=== PATIENT | male | born 1950 | race Caucasian/White ===

== ENCOUNTER 2022-04-26 08:11 | Inpatient (IN) ==
--- NOTE | 2022-04-26 08:36 | Emergency Department Note ---
HPI General Chief complaint: Shortness of Breath/Dyspnea Stated complaint: SOB Time Seen by Provider: 04/26/22 08:16 Source: patient Mode of arrival: wheelchair Limitations: no limitations History of Present Illness HPI Narrative: Narrative: 71 yo M w/ h/o asthma, AF on metoprolol and eliquis, HTN, p/w SOB. He reports that he had PNA two months ago and since then he has had SOB that is getting progressively worse. It is worsened w/ laying flat and exertion, and relieved by rest. He saw his PCP who started him on flonase and loratadine but these have not been helpful. He has had an occasional dry cough. He has not had F/C, CP, N/V/D, peripheral edema, immobilization, recent surgery, no FMH of cardiopulmonary disease. He o/w has no complaints. Related Data Home Medications Medication Instructions Recorded Confirmed aspirin 81 mg tablet,delayed 81 mg PO QDAY 12/04/20 04/26/22 release Previous Rx's Medication Instructions Recorded triamcinolone acetonide 0.05 % 1 applic TOPICAL BID #90 g 07/20/21 topical ointment albuterol sulfate 90 mcg/actuation 2 puff INHALATION QID PRN #2 device 11/06/21 aerosol inhaler (ProAir HFA) hydroxyzine HCl 50 mg tablet 50 mg PO TID PRN #60 tab 03/02/22 apixaban 5 mg tablet (Eliquis) 5 mg PO BID #60 tab 03/24/22 metoprolol succinate 200 mg 200 mg PO QDAY #90 tab 03/25/22 tablet,extended release 24 hr Allergies Allergy/AdvReac Type Severity Reaction Status Date / Time gabapentin AdvReac Mild Rash Verified 04/26/22 08:21 Review of Systems ROS ROS Narrative: Narrative: All systems ED: reviewed and negative except as stated. PFSH Narrative Patient History Narrative: Narrative: Medical/Surgical/Family History All Active Problems (Updated 04/26/22 @ 12:42 by Ellis Fernando MD) Acute dyspnea (Acute) Atrial fibrillation with RVR (Acute) Chest wall pain (Acute) Seasonal allergies (Acute) Acute URI (Acute) Asthma (Acute) Dermatitis (Acute) Insomnia (Acute) Rib pain on left side (Acute) Eczema (Acute) History of sinus surgery (Acute) Hx of knee surgery (Acute) A-fib (Acute) Hypertension (Acute) Left atrial enlargement (Acute) Second and third degree leigh (Acute) Medical History A-fib 2019 Asthma Chest wall pain Eczema Hypertension Left atrial enlargement Echo 2019 - EF 60-65% Surgical History History of sinus surgery Dr. San Hx of knee surgery 2011 Dr. Amin Family History Son Hypertension Social History Smoking Status: Smokeless tobacco Substance Use: does not use Exam Narrative Narrative: Narrative: General Limitations: no limitations General appearance: Present alert and in no apparent distress Head Head: Present atraumatic and normocephalic Eye Eye: Present normal appearance and PERRL ENT ENT: Present normal oropharynx and mucous membranes moist Chest Chest: Present normal inspection and symmetric chest wall rise Respiratory Respiratory: Present wheezes (very mild B/L post lung merritt); Absent respi ratory distress, rales/crackles, stridor, accessory muscle use, prolonged expiratory phase or decreased breath sounds Cardiovascular Cardiovascular: Present tachycardia, irregular rhythm, +S1, +S2 and other (2+ B/L DP and radial pulses); Absent systolic murmur or diastolic murmur Adbominal Abdominal: Present soft and normal bowel sounds; Absent distention or tenderness Extremities Extremities: Absent pedal edema Neurological Neurological: Present alert and oriented X3 Psychiatric Psychiatric: Present normal affect Skin Skin: Present warm (WNL) and dry Course Vital Signs Vital signs: Vital Signs Temperature 97.5 F 04/26/22 08:17 Pulse Rate 150 H 04/26/22 08:17 Respiratory Rate 24 H 04/26/22 08:17 Blood Pressure 128/84 04/26/22 08:17 Pulse Oximetry (%) 97 04/26/22 08:17 Temperature 97.5 F 04/26/22 08:17 Pulse Rate 93 H 04/26/22 12:31 Respiratory Rate 21 04/26/22 13:28 Blood Pressure 127/88 04/26/22 13:16 Pulse Oximetry (%) 91 04/26/22 12:31 MDM MDM Narrative Medical decision making narrative: Narrative:Narrative: 71 yo M w/ h/o asthma, AF on metoprolol and eliquis, HTN, p/w SOB. DDx - PE, PTX, PNA, CHF, ACS, arrhythmia, metabolic/electrolyte d/o, endocrine d/o Pt presented w/ AF RVR but in NAD, w/ no evidence of hemodynamic compromise. He had no risk factors for PE, had no hypoxia, increased WOB, or other Sx to suggest PE and PE W/U was not indicated. There was no PTX on CXR or US. ACS was less likely w/ normal troponin and EKG showing no ischemia. CBC and CMP showed no significant abnormalities. His HX and exam were not suggestive of thyroid storm. He had no F/C, cough to suggest PNA and no infiltrate on CXR. CXR did however show some residual B/L inflammation from previous PNA vs underlying fibrosis. Overall I felt that his SOB was being driven by his AF. In fact his SOB would worsen in conjunction w/ increased rate on his AF RVR as I watched him at the bedside. I thus started Tx w/ metoprolol 5mg. With three doses of this, he remained in RVR. I monitored closely for a few hours and then once safe, gave diltiazem IV. This immediately brought his rate down to the 90s and he had resolution of his SOB. I felt that he would need to be transitioned to PO diltiazem and taken off of metoprolol. I also felt that an ECHO would be ideal as his heart size was borderline on CXR and his BNP was around 4000. I felt that this was likely 2/2 his RVR but thought that this should be looked at a little further. I thus contacted the hospitalist Dr Huertas who accepted pt for admission and requested a D-dimer as well. Lab Data Result diagrams: 04/26/22 08:34 Labs: Lab Results 04/26/22 04/26/22 04/26/22 Range/Units 08:32 08:33 08:34 WBC 9.1 (4.5-11.0) K/mcL RBC 4.89 (4.63-6.08) M/mcL Hgb 14.9 (13.7-17.5) g/dL Hct 45.6 (40.1-51.0) % POC Hct 47.0 (41-55) MCV 93.3 (80.0-100.0) fL MCH 30.5 (26.0-34.0) pg MCHC 32.7 (31.0-36.0) g/dL RDW 13.3 (11.5-14.5) % Plt Count 227 (140-440) K/mcL MPV 10.1 (7.4-10.4) fL Immature Gran % (Auto) 0.4 (0.0-0.5) % Neut % (Auto) 71.4 (38.0-78.0) % Lymph % (Auto) 14.9 L (15.5-49.0) % [place] % (Auto) 11.1 (1.0-12.0) % Eos % (Auto) 1.3 (0.0-7.0) % Baso % (Auto) 0.9 (0.0-2.0) % Lymph # (Auto) 1.35 L (1.50-4.80) K/mcL [place] # (Auto) 1.01 H (0.10-0.90) K/mcL Eos # (Auto) 0.12 (0.00-0.70) K/mcL Baso # (Auto) 0.08 (0.00-0.30) K/mcL Immature Gran # 0.04 (0.00-0.05) K/mcl Absolute Neutrophils 6.52 (1.80-8.00) K/mcL POC VBG pH (7.32-7.42) POC VBG pCO2 at Temp (41-51) POC VBG pO2 (25-40) POC VBG HCO3 (24-28) POC VBG Total CO2 (25-29) POC Venous O2 Sat (40-70) POC VBG Base Excess (-2-2) POC Sodium 135 (133-145) POC Potassium 4.5 (3.3-5.1) POC Chloride 99 (96-108) POC Total CO2 24.0 (22-30) POC BUN 12 (6-20) POC Creatinine 1.1 (0.6-1.2) POC Glucose 145 H (70-105) POC Venous Lactate (0.5-2) POC WB Ioniz Calcium 1.19 (1.16-1.32) NT-Pro-B Natriuret Pep (<125.0) pg/mL POC Troponin I 0 L (0.02-0.08) 04/26/22 04/26/22 Range/Units 08:36 08:39 WBC (4.5-11.0) K/mcL RBC (4.63-6.08) M/mcL Hgb (13.7-17.5) g/dL Hct (40.1-51.0) % POC Hct (41-55) MCV (80.0-100.0) fL MCH (26.0-34.0) pg MCHC (31.0-36.0) g/dL RDW (11.5-14.5) % Plt Count (140-440) K/mcL MPV (7.4-10.4) fL Immature Gran % (Auto) (0.0-0.5) % Neut % (Auto) (38.0-78.0) % Lymph % (Auto) (15.5-49.0) % [place] % (Auto) (1.0-12.0) % Eos % (Auto) (0.0-7.0) % Baso % (Auto) (0.0-2.0) % Lymph # (Auto) (1.50-4.80) K/mcL [place] # (Auto) (0.10-0.90) K/mcL Eos # (Auto) (0.00-0.70) K/mcL Baso # (Auto) (0.00-0.30) K/mcL Immature Gran # (0.00-0.05) K/mcl Absolute Neutrophils (1.80-8.00) K/mcL POC VBG pH 7.30 L (7.32-7.42) POC VBG pCO2 at Temp 50.9 (41-51) POC VBG pO2 24 L (25-40) POC VBG HCO3 25.3 (24-28) POC VBG Total CO2 27.0 (25-29) POC Venous O2 Sat 36.0 L (40-70) POC VBG Base Excess -1.0 (-2-2) POC Sodium (133-145) POC Potassium (3.3-5.1) POC Chloride (96-108) POC Total CO2 (22-30) POC BUN (6-20) POC Creatinine (0.6-1.2) POC Glucose (70-105) POC Venous Lactate 1.7 (0.5-2) POC WB Ioniz Calcium (1.16-1.32) NT-Pro-B Natriuret Pep 4019.0 H (<125.0) pg/mL POC Troponin I (0.02-0.08) ED POC Tests ED POC Tests: PILY - SARS Antigen Negative EKG Data EKG #1: EKG attestation: Yes I reviewed and interpreted this EKG. and Yes There are no EKG findings of acute coronary syndrome EKG results narrative: A fib w/ rate of 141 Normal QRS, QT/QTc intervals No STEMI Similar to previous EKG CC TIME Critical Care Time Attestation: Approximately 35 minutes of critical care time was used in order to assess and manage the high probability of imminent or life threatening deterioration to the cardiovascular and pulmonary systems which required my highest level of preparedness and interventions with frequent patient assessments. This time is excluding time spent on separately billable procedures. Discharge Plan Patient/Caregiver Discharge Instructions Pt seen by MICROBIOLOGY INSTRUCTOR/PA only: No Clinical Impression: Acute dyspnea, Atrial fibrillation with RVR Patient Disposition: Xfer As Inpt ([facility]) Follow up with: Radha Ruiz ARNP [Primary Care Provider] - Prescriptions: No Action triamcinolone acetonide 0.05 % ointment 1 applic TOPICAL BID Qty: 90 1RF albuterol sulfate [ProAir HFA] 90 mcg/actuation HFA aerosol inhaler 2 puff inhalation QID PRN (Reason: shortness of breath or wheezing) Qty: 2 1RF aspirin 81 mg tablet,delayed release (DR/EC) 81 mg PO QDAY 0RF hydroxyzine HCl 50 mg tablet 50 mg PO TID PRN (Reason: anxiety) Qty: 60 0RF Eliquis 5 mg tablet 5 mg PO BID Qty: 60 2RF metoprolol succinate 200 mg tablet extended release 24 hr 200 mg PO QDAY Qty: 90 3RF
[2022-04-26 08:37] LABS: POC Calcium, Ionized 1.19 (1.16-1.32); POC Creatinine 1.1 (0.6-1.2); POC Potassium 4.5 (3.3-5.1)
[2022-04-26] MEDS: METOPROLOL TARTRATE 5 MG/5 ML VIAL IV SCH ×3 (08:58→09:35)
--- NOTE | 2022-04-26 09:22 | XRay Report ---
HISTORY: Shortness of breath for five weeks, hypertension FINDINGS: There is a vague haziness in the lung parenchyma in both lower lobes. These are stable findings which were seen on recent x-rays. The small left-sided pleural effusion seen on 04/09/22 has resolved. There is residual minor blunting of the right costophrenic sulcus due to a tiny residual pleural effusion. The lung volumes are normal. There is no lobar consolidation. There is no evidence of a mass or adenopathy. The heart is borderline enlarged but magnified by portable technique. There is no congestive heart failure. IMPRESSION: Prominent lung markings in both lower lobes. This could be due to persistent inflammation or underlying fibrosis. Resolving pleural effusions Interpreted and Authenticated by: Tahir Dupree 04/26/22
[2022-04-26 10:15] LABS: Basophils # (Auto) 0.08 K/mcL (0.00-0.30); Basophils % (Auto) 0.9 % (0.0-2.0); Eosinophils # (Auto) 0.12 K/mcL (0.00-0.70); Eosinophils % (Auto) 1.3 % (0.0-7.0); Hematocrit 45.6 % (40.1-51.0); Hemoglobin 14.9 g/dL (13.7-17.5); Lymphocytes # (Auto) 1.35 K/mcL (1.50-4.80); Lymphocytes % (Auto) 14.9 % (15.5-49.0); Mean Cell Volume 93.3 fL (80.0-100.0); Mean Corpuscular HGB Conc 32.7 g/dL (31.0-36.0); Mean Platelet Volume 10.1 fL (7.4-10.4); Monocytes # (Auto) 1.01 K/mcL (0.10-0.90); Monocytes % (Auto) 11.1 % (1.0-12.0); Neutrophils % (Auto) 71.4 % (38.0-78.0); Platelet Count 227 K/mcL (140-440); RBC 4.89 M/mcL (4.63-6.08); Red Cell Distribution Width 13.3 % (11.5-14.5); WBC 9.1 K/mcL (4.5-11.0)
[2022-04-26] MEDS ORDERED: DILTIAZEM 25 MG/5 ML VIAL IV ONE ×2 (11:48→14:05)
[2022-04-26] MEDS ORDERED: DILTIAZEM 30 MG TABLET PO ONE (12:36)
[2022-04-26] MEDS ORDERED: ALBUTEROL SULFATE 200 PUFF INHALER INH PRN (14:09)
--- NOTE | 2022-04-26 14:16 | Internal Med History&Physical ---
HPI History of Present Illness Patient information: Note initiated : 04/26/22 at 2:14 pm Service Date, if different from initiated Date: [] Patient: Jalil Garcia a 71 y/o M admitted on for SOB . Chief Complaint: [shortness of breath] Chief complaint: shortness of breath History of present illness: Mr. Garcia is a 71 year old M history of atrial fibrillation's, essential hypertensions, asthma, presenting with 2 months history of gradual onset, gradually worsening shortness of breath. There was no prior similar symptoms. Patient is complaining of 2 months history of progressively worsening shortness of breath with deep [place] sessions of 100 feet. He denies any cough, sputum production, or respiratory wheezings. He denies any chest pain or palpitations. He denies any lightheadedness or dizziness. He denies any fever chills or diaphoresis. He denies any recent changes of his medication and he is taking metoprolol extended release 200 mg PO daily and Eliquis for his atrial fibrillation's. Vital signs at ED presentation significant for tachycardia and tachypnea with heart rate and rate of breathing in the 140s and mid 20s, respectively. COVID-negative. Troponin not elevated. BNP 4019. Chest x-ray showing prominent lung markings in both lower lobes it could be due to persistent inflammation or underlying fibrosis. Resolving pleural effusions. Status post diltiazem 20 mg IV push x2 with latest heart rate in the 70s in atrial fibrillation's and blood pressure 110s/80s mmHg. Constitutional Constitutional: Absent chills, excessive sweating, fatigue, fever(s) or weakness EENT Eyes: Absent blurry vision, change in vision, loss of vision or other visual disturbances Ears: Absent decreased hearing or tinnitus Nose, mouth and throat: Absent abnormal hearing, dry mouth, headache(s), nasal congestion or sore throat Cardiovascular Cardiovascular: Absent chest pain, chest pain at rest, edema, irregular heart rhythm or palpatations Respiratory Respiratory: Present dyspnea and dyspnea on exertion; Absent cough or wheezing Gastrointestinal Gastrointestinal: Absent abdominal pain, constipation, diarrhea, nausea or vomiting Musculoskeletal Musculoskeletal: Absent back pain, deformity, limited range of motion, muscle cramps, muscle weakness or numbness Integumentary Integumentary: Absent lesions, rash or wounds Neurological Neurological: Absent focal weakness, headache(s) or numbness Psychiatric Psychiatric: Absent anxiety, depression or hallucinations PFSH PFSH All Active Problems (Updated 04/26/22 @ 14:23 by Keny Huertas MD) Elevated brain natriuretic peptide (BNP) level (Acute) Acute dyspnea (Acute) Atrial fibrillation with RVR (Acute) Chest wall pain (Acute) Seasonal allergies (Acute) Acute URI (Acute) Asthma (Acute) Dermatitis (Acute) Insomnia (Acute) Rib pain on left side (Acute) Eczema (Acute) History of sinus surgery (Acute) Hx of knee surgery (Acute) A-fib (Acute) Hypertension (Acute) Left atrial enlargement (Acute) Second and third degree leigh (Acute) Medical History A-fib 2019 Asthma Chest wall pain Eczema Hypertension Left atrial enlargement Echo 2019 - EF 60-65% Surgical History History of sinus surgery Dr. San Hx of knee surgery 2010 Dr. 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 other: : Kenzie Stamper quit status: considering quitting counseling given: provider counseling substance use type: does not use MEDS/ALLERGIES Home Medications and Allergies Home Medications Medication Instructions Recorded Confirmed Type aspirin 81 mg tablet,delayed 81 mg PO QDAY 12/04/20 04/26/22 History release triamcinolone acetonide 0.05 % 1 applic TOPICAL BID #90 g 07/20/21 04/26/22 Rx topical ointment albuterol sulfate 90 mcg/actuation 2 puff INHALATION QID PRN #2 device 11/06/21 04/26/22 Rx aerosol inhaler (ProAir HFA) hydroxyzine HCl 50 mg tablet 50 mg PO TID PRN #60 tab 03/02/22 04/26/22 Rx apixaban 5 mg tablet (Eliquis) 5 mg PO BID #60 tab 03/24/22 04/26/22 Rx metoprolol succinate 200 mg 200 mg PO QDAY #90 tab 03/25/22 04/26/22 Rx tablet,extended release 24 hr Allergies Allergy/AdvReac Type Severity Reaction Status Date / Time gabapentin AdvReac Mild Rash Verified 04/26/22 08:21 EXAM Constitutional Vitals: Temp Pulse Resp BP Pulse Ox 36.4 C 113 H 28 H 127/96 95 04/26/22 08:17 04/26/22 14:09 04/26/22 14:09 04/26/22 14:09 04/26/22 14:09 General appearance: cooperative and no acute distress Head Head exam: Present atraumatic and normocephalic Eye Eye exam: Present EOMI and PERRL ENT ENT exam: Present mucous membranes moist, normal exam and normal external ear exam Neck Neck exam: Present normal inspection; Absent lymphadenopathy, tenderness or thyromegaly Respiratory Respiratory exam: Absent accessory muscle use, respiratory distress or wheezes Cardiovascular Cardiovascular exam: Present irregular rhythm and tachycardia; Absent JVD GI/Abdominal GI/Abdominal exam: Present normal bowel sounds and soft; Absent organomegaly or tenderness Rectal Rectal exam: Present deferred Extremities Exam Extremities exam: Present full ROM, normal capillary refill and normal inspection; Absent tenderness Neurological Exam Neurological exam: Present alert, CN II-XII intact and oriented X3; Absent motor sensory deficit Psychiatric Psychiatric exam: Present normal affect and normal mood; Absent anxious or depressed Skin Skin exam: Present dry and intact DATA Data Completed and Pending Labs: Labs from last 24 hours 04/26/22 04/26/22 04/26/22 08:39 08:36 08:34 WBC RBC Hgb Hct POC Hct MCV MCH MCHC RDW Plt Count MPV Immature Gran % (Auto) Neut % (Auto) Lymph % (Auto) [place] % (Auto) Eos % (Auto) Baso % (Auto) Lymph # (Auto) [place] # (Auto) Eos # (Auto) Baso # (Auto) Immature Gran # Absolute Neutrophils D-Dimer Pending POC VBG pH 7.30 L POC VBG pCO2 at Temp 50.9 POC VBG pO2 24 L POC VBG HCO3 25.3 POC VBG Total CO2 27.0 POC Venous O2 Sat 36.0 L POC VBG Base Excess -1.0 POC Sodium POC Potassium POC Chloride POC Total CO2 POC BUN POC Creatinine POC Glucose POC Venous Lactate 1.7 POC WB Ioniz Calcium NT-Pro-B Natriuret Pep 4019.0 H POC Troponin I 04/26/22 04/26/22 04/26/22 08:34 08:33 08:32 WBC 9.1 RBC 4.89 Hgb 14.9 Hct 45.6 POC Hct 47.0 MCV 93.3 MCH 30.5 MCHC 32.7 RDW 13.3 Plt Count 227 MPV 10.1 Immature Gran % (Auto) 0.4 Neut % (Auto) 71.4 Lymph % (Auto) 14.9 L [place] % (Auto) 11.1 Eos % (Auto) 1.3 Baso % (Auto) 0.9 Lymph # (Auto) 1.35 L [place] # (Auto) 1.01 H Eos # (Auto) 0.12 Baso # (Auto) 0.08 Immature Gran # 0.04 Absolute Neutrophils 6.52 D-Dimer POC VBG pH POC VBG pCO2 at Temp POC VBG pO2 POC VBG HCO3 POC VBG Total CO2 POC Venous O2 Sat POC VBG Base Excess POC Sodium 135 POC Potassium 4.5 POC Chloride 99 POC Total CO2 24.0 POC BUN 12 POC Creatinine 1.1 POC Glucose 145 H POC Venous Lactate POC WB Ioniz Calcium 1.19 NT-Pro-B Natriuret Pep POC Troponin I 0 L A/P Assessment and plan (1) Atrial fibrillation with RVR: Status: Acute (2) Hypertension: Status: Acute (3) Asthma: Status: Acute (4) Elevated brain natriuretic peptide (BNP) level: Status: Acute Narrative A/P Narrative: Assessment and Plans: 1. Atrial fibrillation with RVR: Inpatient ICU with telemetry s/p Diltiazem 20mg IV push X2 d/c Metoprolol ER Diltiazem 30mg PO QID Diltiazem drip available as needed for further heart rate control Eliquis 2D echocardiogram Supplemental oxygen therapy as needed to bring spo2>92% D dimer TSH with reflexive free T4 if indicated 2. h/o essential hypertension: d/c Metoprolol ER Diltiazem 30mg PO QID Diltiazem drip available as needed for further heart rate control 3. Asthma: Continue bronchodilators from home regimen 4. Elevated BNP: 2D echocardiogram GI ppx: not currently indicated DVT ppx: Eliquis Code status: Full Prognosis: guarded Disposition: Inpatient ICU with telemetry Critical Care Time: 1 hr Time Spent With Patient Time: Total time spent is greater than 50% in coordination of care (as documented) at patient's floor/unit and/or counseling patient: Total time spent with greater than 50% in coordination of care (as documented) at patient's floor/unit and/or counseling patient:: 50 - 70 minutes Critical Care Time: Yes Total Critical Care Time: 1 (Hr)
[2022-04-26] MEDS ORDERED: hydrALAZINE 20 MG/ML VIAL IV PRN (14:17)
[2022-04-26] MEDS ORDERED: ACETAMINOPHEN 325 MG TABLET PO PRN (14:58)
[2022-04-26] MEDS ORDERED: IPRATROPIUM/ALBUTEROL 3 ML AMPUL.NEB NEB PRN (14:58)
[2022-04-26] MEDS: ONDANSETRON 4 MG/2 ML VIAL IV PRN (15:18)
[2022-04-26] MEDS: hydrOXYzine 25 MG TABLET PO PRN ×2 (16:43→23:55)
[2022-04-26] MEDS: DILTIAZEM 30 MG TABLET PO SCH ×2 (16:43→21:15)
[2022-04-26] MEDS ORDERED: PROMETHAZINE 25 MG/ML VIAL IV PRN (16:47)
[2022-04-26] MEDS: APIXABAN 5 MG TABLET PO SCH (21:15)
[2022-04-26] MEDS: 0.9 % SODIUM CHLORIDE 10 ML SYRINGE IV SCH (21:15)
[2022-04-26] MEDS: DOCUSATE SODIUM 100 MG CAPSULE PO SCH (21:15)
[2022-04-27] MEDS: 0.9 % SODIUM CHLORIDE 10 ML SYRINGE IV SCH ×3 (05:57→21:27)
[2022-04-27 06:34] LABS: Basophils # (Auto) 0.07 K/mcL (0.00-0.30); Basophils % (Auto) 1.1 % (0.0-2.0); Eosinophils # (Auto) 0.06 K/mcL (0.00-0.70); Eosinophils % (Auto) 0.9 % (0.0-7.0); Hematocrit 39.1 % (40.1-51.0); Hemoglobin 12.6 g/dL (13.7-17.5); Lymphocytes # (Auto) 1.01 K/mcL (1.50-4.80); Lymphocytes % (Auto) 15.6 % (15.5-49.0); Mean Cell Volume 94.4 fL (80.0-100.0); Mean Corpuscular HGB Conc 32.2 g/dL (31.0-36.0); Mean Platelet Volume 10.3 fL (7.4-10.4); Monocytes # (Auto) 1.03 K/mcL (0.10-0.90); Monocytes % (Auto) 15.9 % (1.0-12.0); Neutrophils % (Auto) 65.7 % (38.0-78.0); Platelet Count 167 K/mcL (140-440); RBC 4.14 M/mcL (4.63-6.08); Red Cell Distribution Width 13.5 % (11.5-14.5)
[2022-04-27 06:52] LABS: Phosphorous 3.2 mg/dL (2.5-4.5)
[2022-04-27 06:53] LABS: ALT/SGPT 15 U/L (<40); AST/SGOT 22 U/L (<40); Albumin 3.8 gm/dL (3.2-5.2); Albumin/Globulin Ratio 1.5 (1.0-2.3); Alkaline Phosphatase 103 U/L (39-117); Bilirubin,Total 1.2 mg/dL (0.1-1.0); Blood Urea Nitrogen 12 mg/dL (8-23); Carbon Dioxide 24 mmol/L (22-30); Chloride 103 mmol/L (96-108); Globulin 2.6 gm/dL (2.2-3.7); Glomerular Filtration Rate 74; Glucose 102 mg/dL (70-105)
[2022-04-27] MEDS: DILTIAZEM 30 MG TABLET PO SCH ×4 (07:01→21:27)
[2022-04-27] MEDS: DOCUSATE SODIUM 100 MG CAPSULE PO SCH ×2 (08:23→21:27)
[2022-04-27] MEDS: ASPIRIN 81 MG TAB.CHEW PO SCH (08:23)
[2022-04-27] MEDS: SENNOSIDES 1 TABLET PO SCH (08:23)
[2022-04-27] MEDS: APIXABAN 5 MG TABLET PO SCH ×2 (08:23→21:27)
[2022-04-27] MEDS: DILTIAZEM 125 MG in DEXTROSE 5% IN WATER 100 ML IV PRN ×2 (08:39→20:20)
[2022-04-27 08:42] LABS: WBC 6.5 K/mcL (4.5-11.0)
--- NOTE | 2022-04-27 09:14 | Internal Med Progress Note ---
SUBJECTIVE Subjective Patient information: Note initiated : 04/27/22 at 9:10 am Service Date, if different from initiated Date: [] Patient: Jalil Garcia a 71 y/o M admitted on 04/26/22 for SOB . Chief Complaint: [] Interval history: History of present illness: Mr. Garcia is a 71 year old M history of atrial fibrillation's, essential hypertensions, asthma, presenting with 2 months history of gradual onset, gradually worsening shortness of breath. There was no prior similar symptoms. Patient is complaining of 2 months history of progressively worsening shortness of breath with deep Sitavig sessions of 100 feet. He denies any cough, sputum production, or respiratory wheezings. He denies any chest pain or palpitations. He denies any lightheadedness or dizziness. He denies any fever chills or diaphoresis. He denies any recent changes of his medication and he is taking metoprolol extended release 200 mg PO daily and Eliquis for his atrial fibrillation's. Vital signs at ED presentation significant for tachycardia and tachypnea with heart rate and rate of breathing in the 140s and mid 20s, respectively. COVID-negative. Troponin not elevated. BNP 4019. Chest x-ray showing prominent lung markings in both lower lobes it could be due to persistent inflammation or underlying fibrosis. Resolving pleural effusions. Status post diltiazem 20 mg IV push x2 with latest heart rate in the 70s in atrial fibrillation's and blood pressure 110s/80s mmHg. 04/27: Afebrile overnight. Patient is currently on room air. Heart rate still up in the 120s beats per minutes despite Cardizem 30 mg p.o. 4 times daily. D-dimer elevated. COVID-negative. Patient is complaining of brisk episode of anxiety. Denies chest pain or palpitations. Greatly improved degree of shortness of breath. CT angiogram of the chest to rule out pulmonary embolism. Increased Cardizem from 30 to 60 mg p.o. 4 times daily. Also starting Cardizem drip. Continue Eliquis for anticoagulations. Constitutional Vitals: Vital Signs Temp Pulse Resp BP Pulse Ox 36.7 C 131 H 19 123/83 91 04/27/22 08:01 04/27/22 02:01 04/27/22 08:01 04/27/22 08:01 04/27/22 08:01 Period Temp Pulse Resp BP Sys/Carlson Pulse Ox Last 24 Hr 36.4 C-37.1 C 38-145 15-38 87-135/67-105 88-98 Intake and Output 04/26/22 04/27/22 04/27/22 21:59 05:59 13:59 Output Total 200 450 400 Balance -200 -450 -400 Weight 92.714 kg Intake & Output: Intake & Output 04/26/22 04/27/22 04/27/22 21:59 05:59 13:59 Output Total 200 450 400 Balance -200 -450 -400 Weight 92.714 kg Output: Void Amount 200 450 400 Other: Urine Appearance Clear Clear Clear Urine Color Straw Dark Yellow Bright Yellow Urine Odor Normal Head Head exam: Present atraumatic and normal inspection Eye Eye exam: Present normal appearance ENT ENT exam: Present mucous membranes moist, normal exam and normal external ear exam Neck Neck exam: Present normal inspection Respiratory Respiratory exam: Present normal respiratory exam Cardiovascular Cardiovascular exam: Present irregular rhythm and tachycardia GI/Abdominal GI/Abdominal exam: Present normal bowel sounds Back Exam Back exam: Present normal inspection Neurological Exam Neurological exam: Present alert and oriented X3 Skin Skin exam: Present intact and warm OBJ DATA Labs CBC & Chem 7: 04/27/22 05:21 04/27/22 05:21 Labs: Abnormal Lab Results 04/27/22 04/27/22 04/26/22 05:21 05:21 08:39 RBC 4.14 L Hgb 12.6 L Hct 39.1 L Immature Gran % (Auto) 0.8 H Lymph % (Auto) [place] % (Auto) 15.9 H Lymph # (Auto) 1.01 L [place] # (Auto) 1.03 H D-Dimer POC VBG pH 7.30 L POC VBG pO2 24 L POC Venous O2 Sat 36.0 L POC Glucose Total Bilirubin 1.2 H NT-Pro-B Natriuret Pep POC Troponin I 04/26/22 04/26/22 04/26/22 08:36 08:34 08:34 RBC Hgb Hct Immature Gran % (Auto) Lymph % (Auto) 14.9 L [place] % (Auto) Lymph # (Auto) 1.35 L [place] # (Auto) 1.01 H D-Dimer 3.02 H POC VBG pH POC VBG pO2 POC Venous O2 Sat POC Glucose Total Bilirubin NT-Pro-B Natriuret Pep 4019.0 H POC Troponin I 04/26/22 04/26/22 08:33 08:32 RBC Hgb Hct Immature Gran % (Auto) Lymph % (Auto) [place] % (Auto) Lymph # (Auto) [place] # (Auto) D-Dimer POC VBG pH POC VBG pO2 POC Venous O2 Sat POC Glucose 145 H Total Bilirubin NT-Pro-B Natriuret Pep POC Troponin I 0 L Meds: Medications Acetaminophen (Acetaminophen 325 Mg Tablet) 650 mg PO Q4-6HP PRN; Protocol PRN Reason: Per Pain Protocol/Fever > 101 Albuterol Sulfate (Albuterol Sulfate 200 Puff Inhaler) 2 puff INH QIDP PRN PRN Reason: shortness of breath or wheezin Albuterol/Ipratropium (Ipratropium/Albuterol 3 Ml Ampul.Neb) 3 ml NEB Q4HRT PRN PRN Reason: Wheezing Apixaban (Apixaban 5 Mg Tablet) 5 mg PO BID [facility] Last Admin: 04/27/22 08:23 Dose: 5 mg Documented by: Aspirin (Aspirin 81 Mg Tab.Chew) 81 mg PO DAILY [facility] Last Admin: 04/27/22 08:23 Dose: 81 mg Documented by: Diltiazem HCl (Diltiazem 30 Mg Tablet) 60 mg PO [facility] Docusate Sodium (Docusate Sodium 100 Mg Capsule) 100 mg PO BID [facility] Last Admin: 04/27/22 08:23 Dose: 100 mg Documented by: Hydralazine HCl (Hydralazine 20 Mg/Ml Vial) 10 mg IV Q4-6HP PRN PRN Reason: Hypertension Hydroxyzine HCl (Hydroxyzine 25 Mg Tablet) 50 mg PO TIDP PRN PRN Reason: Anxiety Last Admin: 04/26/22 23:55 Dose: 50 mg Documented by: Diltiazem HCl 125 mg/ Dextrose 125 mls @ 5 mls/hr IV Q12HP PRN; Protocol PRN Reason: TITRATE TO KEEP HR <100,SBP>90 Last Admin: 04/27/22 08:39 Dose: 5 mg/hr, 5 mls/hr Documented by: Ondansetron HCl (Ondansetron 4 Mg/2 Ml Vial) 4 mg IV Q4-6HP PRN; Protocol PRN Reason: Nausea And Vomiting Last Admin: 04/26/22 15:18 Dose: 4 mg Documented by: Triamcinolone Acetonide 0.05 % Ointment 1 dose TOPICAL BID [facility] Last Admin: 04/27/22 08:23 Dose: Not Given Documented by: Promethazine HCl (Promethazine 25 Mg/Ml Vial) 25 mg IV Q4-6HP PRN PRN Reason: Nausea And Vomiting Senna (Sennosides 1 Tablet) 1 tab PO DAILY [facility] Last Admin: 04/27/22 08:23 Dose: 1 tab Documented by: Sodium Chloride (0.9 % Sodium Chloride 10 Ml Syringe) 10 ml IV Q8 [facility] Last Admin: 04/27/22 05:57 Dose: 10 ml Documented by: A/P Assessment and plan (1) Atrial fibrillation with RVR: Status: Acute (2) Hypertension: Status: Acute (3) Asthma: Status: Acute (4) Elevated brain natriuretic peptide (BNP) level: Status: Acute (5) Anemia, normocytic normochromic: Status: Acute Narrative A/P Narrative: Assessment and Plans: 1. Atrial fibrillation with RVR: Inpatient ICU with telemetry s/p Diltiazem 20mg IV push X2 d/c Metoprolol ER Diltiazem 30mg-->60mg PO QID for better rate control Diltiazem drip Eliquis 2D echocardiogram, results pending Supplemental oxygen therapy as needed to bring spo2>92% D dimer elevated, will order CT angiogram of the chest to rule out pulmonary embolism TSH with reflexive free T4 if indicated, 2.82, within normal limits 2. h/o essential hypertension: d/c Metoprolol ER Diltiazem 30mg-->60mg PO QID for better rate control Diltiazem drip 3. Asthma: Continue bronchodilators from home regimen 4. Elevated BNP: 2D echocardiogram, pending 5. Anemia, normocytic normochromic: cbc w/ auto diff in the morning to trend H/H GI ppx: not currently indicated DVT ppx: Eliquis Code status: Full Prognosis: guarded Disposition: Inpatient ICU with telemetry Critical Care Time: 45min Time Spent With Patient Time: Total time spent is greater than 50% in coordination of care (as documented) at patient's floor/unit and/or counseling patient: Total time spent with greater than 50% in coordination of care (as documented) at patient's floor/unit and/or counseling patient:: 35 - 50 minutes Critical Care Time: Yes
[2022-04-27] MEDS ORDERED: IOPAMIDOL 100 ML BOTTLE IV ONE (10:16)
--- NOTE | 2022-04-27 10:38 | Cat Scan Report ---
History: Increased dyspnea with elevated serum d-dimer level TECHNIQUE: Following injection of intravenous nonionic contrast the chest was imaged during the pulmonary arterial phase. Sagittal, coronal and axial MIPS images were created. The radiation exposure was limited using dose reduction technology. FINDINGS: The pulmonary arteries are normal without evidence of emboli. The heart is mildly enlarged. Left ventricle is dilated. There is moderate amount calcified plaque in the coronary arteries. Aorta is normal in caliber and has mild atherosclerosis. There is a moderate size layering left-sided pleural effusion and a trace amount pleural fluid in the right posterior costophrenic sulcus. The left-sided effusion is causing mild compressive atelectasis in the basilar segments left lower lobe. Mild thickening of the interlobular septa is seen laterally in the lung bases, right greater than left. There is a band of calcified pleural plaque posteriorly and medially in the right mid thorax. The adjacent ribs and spine appear normal without evidence of an old fracture. No calcified pleural plaque is present in the left thorax. There are pleural-based nodular densities in both apices. The one on the right measures approximately 1.6 x 2.8 cm. It is noncalcified. The one on the left side is much more subtle and is partially obscured by the layering pleural effusion. It measures roughly 0.9 x 2.2 cm. There is mild centrilobular emphysema in both lungs. No intraparenchymal mass is seen. Mild bronchial wall thickening is present in both lower lobes. The trachea and mainstem bronchi are normal. Tiny amount of ascites is seen in left upper quadrant below the diaphragm and lateral to the spleen. No abnormality is seen within the liver spleen or visualized portions of the pancreas. IMPRESSION: No evidence of pulmonary emboli Mild cardiomegaly with mild thickening of the interlobular septa. Patient may have pulmonary vascular congestion. Moderate size layering left-sided pleural effusion Mild emphysema Apical plaque-like nodules in both lung apices. This is more likely scar than neoplasm. Unilateral densely calcified pleural plaques posteriorly and medially in the right mid thorax. The symmetry would suggest this is more likely due to prior trauma or infection as opposed to asbestos exposure Interpreted and Authenticated by: Tahir Dupree 04/27/22
[2022-04-27] MEDS: ONDANSETRON 4 MG/2 ML VIAL IV PRN (13:45)
[2022-04-27] MEDS: hydrOXYzine 25 MG TABLET PO PRN (21:27)
[2022-04-28] MEDS: 0.9 % SODIUM CHLORIDE 10 ML SYRINGE IV SCH ×3 (05:47→20:24)
[2022-04-28 06:23] LABS: Basophils # (Auto) 0.05 K/mcL (0.00-0.30); Basophils % (Auto) 0.8 % (0.0-2.0); Eosinophils # (Auto) 0.09 K/mcL (0.00-0.70); Eosinophils % (Auto) 1.5 % (0.0-7.0); Hematocrit 38.7 % (40.1-51.0); Hemoglobin 12.2 g/dL (13.7-17.5); Lymphocytes % (Auto) 11.6 % (15.5-49.0); Mean Cell Volume 97.2 fL (80.0-100.0); Mean Corpuscular HGB Conc 31.5 g/dL (31.0-36.0); Mean Platelet Volume 10.2 fL (7.4-10.4); Monocytes # (Auto) 0.79 K/mcL (0.10-0.90); Monocytes % (Auto) 13.1 % (1.0-12.0); Neutrophils % (Auto) 72.7 % (38.0-78.0); Platelet Count 150 K/mcL (140-440); RBC 3.98 M/mcL (4.63-6.08); Red Cell Distribution Width 13.5 % (11.5-14.5)
[2022-04-28 06:38] LABS: ALT/SGPT 19 U/L (<40); AST/SGOT 25 U/L (<40); Albumin 3.8 gm/dL (3.2-5.2); Albumin/Globulin Ratio 1.5 (1.0-2.3); Alkaline Phosphatase 104 U/L (39-117); Bilirubin,Total 1.1 mg/dL (0.1-1.0); Blood Urea Nitrogen 13 mg/dL (8-23); Calcium 8.9 mg/dL (8.6-10.4); Carbon Dioxide 23 mmol/L (22-30); Chloride 103 mmol/L (96-108); Globulin 2.5 gm/dL (2.2-3.7); Glomerular Filtration Rate 88; Glucose 108 mg/dL (70-105); Phosphorous 2.8 mg/dL (2.5-4.5)
[2022-04-28] MEDS: DILTIAZEM 30 MG TABLET PO SCH (06:50)
[2022-04-28] MEDS: ASPIRIN 81 MG TAB.CHEW PO SCH (07:47)
[2022-04-28] MEDS: SENNOSIDES 1 TABLET PO SCH (07:48)
[2022-04-28] MEDS: APIXABAN 5 MG TABLET PO SCH ×2 (07:48→20:24)
[2022-04-28] MEDS: DOCUSATE SODIUM 100 MG CAPSULE PO SCH ×2 (07:48→20:24)
[2022-04-28] MEDS ORDERED: DILTIAZEM 120 MG CAP.XL.24H PO SCH (11:00)
--- NOTE | 2022-04-28 11:09 | Internal Med Progress Note ---
SUBJECTIVE Subjective Patient information: Note initiated : 04/28/22 at 11:04 am Service Date, if different from initiated Date: [] Patient: Jalil Garcia a 71 y/o M admitted on 04/26/22 for SOB . Chief Complaint: [] Interval history: History of present illness: Mr. Garcia is a 71 year old M history of atrial fibrillation's, essential hypertensions, asthma, presenting with 2 months history of gradual onset, gradually worsening shortness of breath. There was no prior similar symptoms. Patient is complaining of 2 months history of progressively worsening shortness of breath with deep Sitavig sessions of 100 feet. He denies any cough, sputum production, or respiratory wheezings. He denies any chest pain or palpitations. He denies any lightheadedness or dizziness. He denies any fever chills or diaphoresis. He denies any recent changes of his medication and he is taking metoprolol extended release 200 mg PO daily and Eliquis for his atrial fibrillation's. Vital signs at ED presentation significant for tachycardia and tachypnea with heart rate and rate of breathing in the 140s and mid 20s, respectively. COVID-negative. Troponin not elevated. BNP 4019. Chest x-ray showing prominent lung markings in both lower lobes it could be due to persistent inflammation or underlying fibrosis. Resolving pleural effusions. Status post diltiazem 20 mg IV push x2 with latest heart rate in the 70s in atrial fibrillation's and blood pressure 110s/80s mmHg. 04/27: Afebrile overnight. Patient is currently on room air. Heart rate still up in the 120s beats per minutes despite Cardizem 30 mg p.o. 4 times daily. D-dimer elevated. COVID-negative. Patient is complaining of brisk episode of anxiety. Denies chest pain or palpitations. Greatly improved degree of shortness of breath. CT angiogram of the chest to rule out pulmonary embolism. Increased Cardizem from 30 to 60 mg p.o. 4 times daily. Also starting Cardizem drip. Continue Eliquis for anticoagulations. 04/28: Cardizem drip has been off since 8 AM this morning. Patient's heart rate is between 80s to 100s beats per minutes. Patient's feel like his degree of shor tness of breath has greatly improved. He also denies any chest pain or palpitations. He denies any anxiety. Switched Cardizem from 60 mg p.o. 4 times daily to Cardizem extended release 240 mg p.o. daily starting this morning. We will keep the Cardizem drip available if needed later today for heart rate control. Continue Eliquis as anticoagulations. If the patient's heart rate has been adequately controlled with the switch of the Cardizem to extended release, will discharge patient home tomorrow. Constitutional Vitals: Vital Signs Temp Pulse Resp BP Pulse Ox 36.4 C 126 H 21 121/76 99 04/28/22 08:01 04/28/22 11:01 04/28/22 11:01 04/28/22 11:01 04/28/22 11:01 Period Temp Pulse Resp BP Sys/Carlson Pulse Ox Last 24 Hr 36.3 C-36.8 C 57-128 15-30 99-136/57-89 86-99 Intake and Output 04/27/22 04/28/22 04/28/22 21:59 05:59 13:59 Intake Total 803 292 276 Output Total 200 225 Balance 603 67 276 Weight 91.852 kg Intake & Output: Intake & Output 04/27/22 04/28/22 04/28/22 21:59 05:59 13:59 Intake Total 803 292 276 Output Total 200 225 Balance 603 67 276 Weight 91.852 kg Intake: IV 103 42 36 Cardizem 125 mg In Dextrose 5% 103 42 36 in Water 100 ml @ 5 MG/HR 5 mls /hr IV Q12HP PRN Rx#:[id number] Oral 700 250 240 Output: Void Amount 200 225 Other: Meal Dinner Breakfast Percent of Meal Consumed 25% 100% Feeding Ability Independent Independent Urine Appearance Clear Clear Urine Color Dark Yellow Dark Yellow Head Head exam: Present atraumatic and normal inspection Eye Eye exam: Present normal appearance ENT ENT exam: Present mucous membranes moist, normal exam and normal external ear exam Additional comments: oxygen mask in place Neck Neck exam: Present normal inspection Respiratory Respiratory exam: Present normal respiratory exam Cardiovascular Cardiovascular exam: Present irregular rhythm and tachycardia GI/Abdominal GI/Abdominal exam: Present normal bowel sounds Back Exam Back exam: Present normal inspection Neurological Exam Neurological exam: Present alert and oriented X3 Skin Skin exam: Present intact and warm OBJ DATA Labs CBC & Chem 7: 04/28/22 05:27 04/28/22 05:27 Labs: Abnormal Lab Results 04/28/22 04/28/22 04/27/22 05:27 05:27 05:21 RBC 3.98 L Hgb 12.2 L Hct 38.7 L Immature Gran % (Auto) Lymph % (Auto) 11.6 L [place] % (Auto) 13.1 H Lymph # (Auto) 0.70 L [place] # (Auto) D-Dimer POC VBG pH POC VBG pO2 POC Venous O2 Sat Glucose 108 H POC Glucose Total Bilirubin 1.1 H 1.2 H NT-Pro-B Natriuret Pep POC Troponin I 04/27/22 04/26/22 04/26/22 05:21 08:39 08:36 RBC 4.14 L Hgb 12.6 L Hct 39.1 L Immature Gran % (Auto) 0.8 H Lymph % (Auto) [place] % (Auto) 15.9 H Lymph # (Auto) 1.01 L [place] # (Auto) 1.03 H D-Dimer POC VBG pH 7.30 L POC VBG pO2 24 L POC Venous O2 Sat 36.0 L Glucose POC Glucose Total Bilirubin NT-Pro-B Natriuret Pep 4019.0 H POC Troponin I 04/26/22 04/26/22 04/26/22 08:34 08:34 08:33 RBC Hgb Hct Immature Gran % (Auto) Lymph % (Auto) 14.9 L [place] % (Auto) Lymph # (Auto) 1.35 L [place] # (Auto) 1.01 H D-Dimer 3.02 H POC VBG pH POC VBG pO2 POC Venous O2 Sat Glucose POC Glucose 145 H Total Bilirubin NT-Pro-B Natriuret Pep POC Troponin I 04/26/22 08:32 RBC Hgb Hct Immature Gran % (Auto) Lymph % (Auto) [place] % (Auto) Lymph # (Auto) [place] # (Auto) D-Dimer POC VBG pH POC VBG pO2 POC Venous O2 Sat Glucose POC Glucose Total Bilirubin NT-Pro-B Natriuret Pep POC Troponin I 0 L Meds: Medications Acetaminophen (Acetaminophen 325 Mg Tablet) 650 mg PO Q4-6HP PRN; Protocol PRN Reason: Per Pain Protocol/Fever > 101 Albuterol Sulfate (Albuterol Sulfate 200 Puff Inhaler) 2 puff INH QIDP PRN PRN Reason: shortness of breath or wheezin Albuterol/Ipratropium (Ipratropium/Albuterol 3 Ml Ampul.Neb) 3 ml NEB Q4HRT PRN PRN Reason: Wheezing Apixaban (Apixaban 5 Mg Tablet) 5 mg PO BID [facility] Last Admin: 04/28/22 07:48 Dose: 5 mg Documented by: Aspirin (Aspirin 81 Mg Tab.Chew) 81 mg PO DAILY [facility] Last Admin: 04/28/22 07:47 Dose: 81 mg Documented by: Diltiazem HCl (Diltiazem 120 Mg Cap.Xl.24h) 240 mg PO 1100 [facility] Stop: 04/28/22 16:00 Diltiazem HCl (Diltiazem 120 Mg Cap.Xl.24h) 240 mg PO DAILY [facility] Docusate Sodium (Docusate Sodium 100 Mg Capsule) 100 mg PO BID [facility] Last Admin: 04/28/22 07:48 Dose: 100 mg Documented by: Hydralazine HCl (Hydralazine 20 Mg/Ml Vial) 10 mg IV Q4-6HP PRN PRN Reason: Hypertension Hydroxyzine HCl (Hydroxyzine 25 Mg Tablet) 50 mg PO TIDP PRN PRN Reason: Anxiety Last Admin: 04/27/22 21:27 Dose: 50 mg Documented by: Diltiazem HCl 125 mg/ Dextrose 125 mls @ 5 mls/hr IV Q12HP PRN; Protocol PRN Reason: TITRATE TO KEEP HR <100,SBP>90 Last Titration: 04/28/22 07:46 Dose: 0 mg/hr, 0 mls/hr Documented by: Ondansetron HCl (Ondansetron 4 Mg/2 Ml Vial) 4 mg IV Q4-6HP PRN; Protocol PRN Reason: Nausea And Vomiting Last Admin: 04/27/22 13:45 Dose: 4 mg Documented by: Triamcinolone Acetonide 0.05 % Ointment 1 dose TOPICAL BID [facility] Last Admin: 04/28/22 07:50 Dose: Not Given Documented by: Promethazine HCl (Promethazine 25 Mg/Ml Vial) 25 mg IV Q4-6HP PRN PRN Reason: Nausea And Vomiting Senna (Sennosides 1 Tablet) 1 tab PO DAILY [facility] Last Admin: 04/28/22 07:48 Dose: 1 tab Documented by: Sodium Chloride (0.9 % Sodium Chloride 10 Ml Syringe) 10 ml IV Q8 [facility] Last Admin: 04/28/22 05:47 Dose: 10 ml Documented by: A/P Assessment and plan (1) Atrial fibrillation with RVR: Status: Acute (2) Hypertension: Status: Acute (3) Asthma: Status: Acute (4) Elevated brain natriuretic peptide (BNP) level: Status: Acute (5) Anemia, normocytic normochromic: Status: Acute Narrative A/P Narrative: Assessment and Plans: 1. Atrial fibrillation with RVR: Inpatient ICU with telemetry Switched Cardizem from 60 mg p.o. 4 times daily to Cardizem extended release 240 mg p.o. daily starting this morning. We will keep the Cardizem drip available if needed later today for heart rate control Eliquis 2D echocardiogram, seems to have reduced LVEF but cannot have an accurate estimate. Overall poor quality study. Supplemental oxygen therapy as needed to bring spo2>92% D dimer elevated, will order CT angiogram of the chest to rule out pulmonary embolism TSH with reflexive free T4 if indicated, 2.82, within normal limits If the patient's heart rate has been adequately controlled with the switch of the Cardizem to extended release, will discharge patient home tomorrow. 2. h/o essential hypertension: d/c Metoprolol ER Diltiazem ER 240mg PO daily Diltiazem drip stands by 3. Asthma: Continue bronchodilators from home regimen 4. Elevated BNP: 2D echocardiogram, seems to have reduced LVEF but cannot have an accurate estimate. Overall poor quality study. 5. Anemia, normocytic normochromic: cbc w/ auto diff in the morning to trend H/H GI ppx: not currently indicated DVT ppx: Eliquis Code status: Full Prognosis: guarded Disposition: Inpatient ICU with telemetry Critical Care Time: 45min Time Spent With Patient Time: Total time spent is greater than 50% in coordination of care (as documented) at patient's floor/unit and/or counseling patient: Total time spent with greater than 50% in coordination of care (as documented) at patient's floor/unit and/or counseling patient:: 35 - 50 minutes
--- NOTE | 2022-04-28 12:49 | EKG ---
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
--- NOTE | 2022-04-28 12:50 | EKG ---
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
[2022-04-28] MEDS ORDERED: DILTIAZEM 180 MG CAP.XL.24H PO ONE (18:22)
[2022-04-28] MEDS: DILTIAZEM 125 MG in DEXTROSE 5% IN WATER 100 ML IV PRN (18:37)
[2022-04-28] MEDS ORDERED: DILTIAZEM 120 MG CAP.XL.24H PO ONE (21:00)
[2022-04-29] MEDS: DILTIAZEM 125 MG in DEXTROSE 5% IN WATER 100 ML IV PRN (04:06)
[2022-04-29] MEDS: 0.9 % SODIUM CHLORIDE 10 ML SYRINGE IV SCH ×3 (05:57→21:01)
[2022-04-29 07:29] LABS: Basophils # (Auto) 0.04 K/mcL (0.00-0.30); Basophils % (Auto) 0.8 % (0.0-2.0); Eosinophils # (Auto) 0.17 K/mcL (0.00-0.70); Eosinophils % (Auto) 3.5 % (0.0-7.0); Hemoglobin 11.8 g/dL (13.7-17.5); Lymphocytes # (Auto) 0.58 K/mcL (1.50-4.80); Lymphocytes % (Auto) 11.9 % (15.5-49.0); Mean Cell Volume 95.9 fL (80.0-100.0); Mean Corpuscular HGB Conc 31.9 g/dL (31.0-36.0); Mean Platelet Volume 9.9 fL (7.4-10.4); Monocytes # (Auto) 0.68 K/mcL (0.10-0.90); Monocytes % (Auto) 13.9 % (1.0-12.0); Neutrophils % (Auto) 69.7 % (38.0-78.0); Platelet Count 164 K/mcL (140-440); RBC 3.86 M/mcL (4.63-6.08); Red Cell Distribution Width 13.6 % (11.5-14.5); WBC 4.9 K/mcL (4.5-11.0)
[2022-04-29 07:54] LABS: ALT/SGPT 18 U/L (<40); AST/SGOT 21 U/L (<40); Albumin 3.5 gm/dL (3.2-5.2); Albumin/Globulin Ratio 1.3 (1.0-2.3); Alkaline Phosphatase 106 U/L (39-117); Bilirubin,Total 0.9 mg/dL (0.1-1.0); Blood Urea Nitrogen 9 mg/dL (8-23); Calcium 8.8 mg/dL (8.6-10.4); Carbon Dioxide 23 mmol/L (22-30); Chloride 104 mmol/L (96-108); Globulin 2.7 gm/dL (2.2-3.7); Glomerular Filtration Rate 88; Glucose 162 mg/dL (70-105); Phosphorous 2.7 mg/dL (2.5-4.5)
[2022-04-29] MEDS: DOCUSATE SODIUM 100 MG CAPSULE PO SCH ×2 (08:30→20:58)
[2022-04-29] MEDS: APIXABAN 5 MG TABLET PO SCH ×2 (08:30→20:58)
[2022-04-29] MEDS: SENNOSIDES 1 TABLET PO SCH (08:30)
[2022-04-29] MEDS: ASPIRIN 81 MG TAB.CHEW PO SCH (08:31)
[2022-04-29] MEDS ORDERED: DILTIAZEM 120 MG CAP.XL.24H PO SCH (09:00)
[2022-04-29] MEDS ORDERED: DILTIAZEM 120 MG CAP.XL.24H PO ONE (09:04)
--- NOTE | 2022-04-29 12:55 | Internal Med Progress Note ---
SUBJECTIVE Subjective Patient information: Note initiated : 04/29/22 at 12:52 pm Service Date, if different from initiated Date: [] Patient: Jalil Garcia a 71 y/o M admitted on 04/26/22 for SOB . Chief Complaint: [] Interval history: History of present illness: Mr. Garcia is a 71 year old M history of atrial fibrillation's, essential hypertensions, asthma, presenting with 2 months history of gradual onset, gradually worsening shortness of breath. There was no prior similar symptoms. Patient is complaining of 2 months history of progressively worsening shortness of breath with deep Sitavig sessions of 100 feet. He denies any cough, sputum production, or respiratory wheezings. He denies any chest pain or palpitations. He denies any lightheadedness or dizziness. He denies any fever chills or diaphoresis. He denies any recent changes of his medication and he is taking metoprolol extended release 200 mg PO daily and Eliquis for his atrial fibrillation's. Vital signs at ED presentation significant for tachycardia and tachypnea with heart rate and rate of breathing in the 140s and mid 20s, respectively. COVID-negative. Troponin not elevated. BNP 4019. Chest x-ray showing prominent lung markings in both lower lobes it could be due to persistent inflammation or underlying fibrosis. Resolving pleural effusions. Status post diltiazem 20 mg IV push x2 with latest heart rate in the 70s in atrial fibrillation's and blood pressure 110s/80s mmHg. 04/27: Afebrile overnight. Patient is currently on room air. Heart rate still up in the 120s beats per minutes despite Cardizem 30 mg p.o. 4 times daily. D-dimer elevated. COVID-negative. Patient is complaining of brisk episode of anxiety. Denies chest pain or palpitations. Greatly improved degree of shortness of breath. CT angiogram of the chest to rule out pulmonary embolism. Increased Cardizem from 30 to 60 mg p.o. 4 times daily. Also starting Cardizem drip. Continue Eliquis for anticoagulations. 04/28: Cardizem drip has been off since 8 AM this morning. Patient's heart rate is between 80s to 100s beats per minutes. Patient's feel like his degree of shor tness of breath has greatly improved. He also denies any chest pain or palpitations. He denies any anxiety. Switched Cardizem from 60 mg p.o. 4 times daily to Cardizem extended release 240 mg p.o. daily starting this morning. We will keep the Cardizem drip available if needed later today for heart rate control. Continue Eliquis as anticoagulations. If the patient's heart rate has been adequately controlled with the switch of the Cardizem to extended release, will discharge patient home tomorrow. 04/29: Cardizem drip was switched off at around 830 this morning. Patient is on Cardizem extended release 360 mg p.o. daily. However, patient's heart rate is still fairly elevated 130s at rest and 150s when he ambulates. Patient's denies any chest pain or palpitations. He also denies any anxiety. He denies any short of breath. He is asymptomatic. Will continue Cardizem extended release 360 mg p.o. daily and will add metoprolol tartrate 100 mg p.o. twice daily starting now. We will continue Eliquis as anticoagulations. Constitutional Vitals: Vital Signs Temp Pulse Resp BP Pulse Ox 36.2 C 104 H 20 143/84 95 04/29/22 12:01 04/29/22 10:08 04/29/22 09:43 04/29/22 12:01 04/29/22 12:19 Period Temp Pulse Resp BP Sys/Carlson Pulse Ox Last 24 Hr 36.2 C-36.8 C 27-117 10-25 99-143/62-98 73-99 Intake and Output 04/28/22 04/29/22 04/29/22 21:59 05:59 13:59 Intake Total 652 357 515 Output Total 410 Balance 652 357 105 Weight 92.578 kg Intake & Output: Intake & Output 04/28/22 04/29/22 04/29/22 21:59 05:59 13:59 Intake Total 652 357 515 Output Total 410 Balance 652 357 105 Weight 92.578 kg Intake: IV 52 117 35 Cardizem 125 mg In Dextrose 5% 52 117 35 in Water 100 ml @ 5 MG/HR 5 mls /hr IV Q12HP PRN Rx#:[id number] Oral 600 240 480 Output: Void Amount 410 Other: Meal Dinner Lunch Percent of Meal Consumed 75% 50% Feeding Ability Independent Urine Appearance Clear Urine Color Dark Divya Head Head exam: Present atraumatic and normal inspection Eye Eye exam: Present normal appearance ENT ENT exam: Present mucous membranes moist, normal exam and normal external ear exam Neck Neck exam: Present normal inspection Respiratory Respiratory exam: Present normal respiratory exam Cardiovascular Cardiovascular exam: Present irregular rhythm and tachycardia GI/Abdominal GI/Abdominal exam: Present normal bowel sounds Back Exam Back exam: Present normal inspection Neurological Exam Neurological exam: Present alert and oriented X3 Skin Skin exam: Present intact and warm OBJ DATA Labs CBC & Chem 7: 04/29/22 05:19 04/29/22 05:19 Labs: Abnormal Lab Results 04/29/22 04/29/22 04/28/22 05:19 05:19 05:27 RBC 3.86 L Hgb 11.8 L Hct 37.0 L Immature Gran % (Auto) Lymph % (Auto) 11.9 L [place] % (Auto) 13.9 H Lymph # (Auto) 0.58 L [place] # (Auto) D-Dimer Glucose 162 H 108 H Total Bilirubin 1.1 H 04/28/22 04/27/22 04/27/22 05:27 05:21 05:21 RBC 3.98 L 4.14 L Hgb 12.2 L 12.6 L Hct 38.7 L 39.1 L Immature Gran % (Auto) 0.8 H Lymph % (Auto) 11.6 L [place] % (Auto) 13.1 H 15.9 H Lymph # (Auto) 0.70 L 1.01 L [place] # (Auto) 1.03 H D-Dimer Glucose Total Bilirubin 1.2 H 04/26/22 08:34 RBC Hgb Hct Immature Gran % (Auto) Lymph % (Auto) [place] % (Auto) Lymph # (Auto) [place] # (Auto) D-Dimer 3.02 H Glucose Total Bilirubin Meds: Medications Acetaminophen (Acetaminophen 325 Mg Tablet) 650 mg PO Q4-6HP PRN; Protocol PRN Reason: Per Pain Protocol/Fever > 101 Albuterol Sulfate (Albuterol Sulfate 200 Puff Inhaler) 2 puff INH QIDP PRN PRN Reason: shortness of breath or wheezin Albuterol/Ipratropium (Ipratropium/Albuterol 3 Ml Ampul.Neb) 3 ml NEB Q4HRT PRN PRN Reason: Wheezing Apixaban (Apixaban 5 Mg Tablet) 5 mg PO BID [facility] Last Admin: 04/29/22 08:30 Dose: 5 mg Documented by: Aspirin (Aspirin 81 Mg Tab.Chew) 81 mg PO DAILY [facility] Last Admin: 04/29/22 08:31 Dose: 81 mg Documented by: Diltiazem HCl (Diltiazem 120 Mg Cap.Xl.24h) 360 mg PO DAILY [facility] Docusate Sodium (Docusate Sodium 100 Mg Capsule) 100 mg PO BID [facility] Last Admin: 04/29/22 08:30 Dose: 100 mg Documented by: Hydralazine HCl (Hydralazine 20 Mg/Ml Vial) 10 mg IV Q4-6HP PRN PRN Reason: Hypertension Hydroxyzine HCl (Hydroxyzine 25 Mg Tablet) 50 mg PO TIDP PRN PRN Reason: Anxiety Last Admin: 04/27/22 21:27 Dose: 50 mg Documented by: Diltiazem HCl 125 mg/ Dextrose 125 mls @ 5 mls/hr IV Q12HP PRN; Protocol PRN Reason: TITRATE TO KEEP HR <100,SBP>90 Last Titration: 04/29/22 08:31 Dose: 0 mg/hr, 0 mls/hr Documented by: Ondansetron HCl (Ondansetron 4 Mg/2 Ml Vial) 4 mg IV Q4-6HP PRN; Protocol PRN Reason: Nausea And Vomiting Last Admin: 04/27/22 13:45 Dose: 4 mg Documented by: Triamcinolone Acetonide 0.05 % Ointment 1 dose TOPICAL BID [facility] Last Admin: 04/29/22 08:27 Dose: Not Given Documented by: Promethazine HCl (Promethazine 25 Mg/Ml Vial) 25 mg IV Q4-6HP PRN PRN Reason: Nausea And Vomiting Senna (Sennosides 1 Tablet) 1 tab PO DAILY [facility] Last Admin: 04/29/22 08:30 Dose: 1 tab Documented by: Sodium Chloride (0.9 % Sodium Chloride 10 Ml Syringe) 10 ml IV Q8 [facility] Last Admin: 04/29/22 05:57 Dose: 10 ml Documented by: A/P Assessment and plan (1) Atrial fibrillation with RVR: Status: Acute (2) Hypertension: Status: Acute (3) Asthma: Status: Acute (4) Elevated brain natriuretic peptide (BNP) level: Status: Acute (5) Anemia, normocytic normochromic: Status: Acute Narrative A/P Narrative: Assessment and Plans: 1. Atrial fibrillation with RVR: Inpatient ICU with telemetry Cardizem drip off since 829 today Will continue Cardizem extended release 360 mg p.o. daily and will add metoprolol tartrate 100 mg p.o. twice daily starting now Eliquis 2D echocardiogram, seems to have reduced LVEF but cannot have an accurate estimate. Overall poor quality study. Supplemental oxygen therapy as needed to bring spo2>92%, currently on room air D dimer elevated, will order CT angiogram of the chest to rule out pulmonary embolism--->negative for pulmonary embolism TSH with reflexive free T4 if indicated, 2.82, within normal limits If the patient's heart rate has been adequately controlled with the switch of the Cardizem to extended release, will discharge patient home tomorrow. 2. h/o essential hypertension: Will continue Cardizem extended release 360 mg p.o. daily and will add metoprolol tartrate 100 mg p.o. twice daily starting now Diltiazem drip stands by 3. Asthma: Continue bronchodilators from home regimen 4. Elevated BNP: 2D echocardiogram, seems to have reduced LVEF but cannot have an accurate estimate. Overall poor quality study. 5. Anemia, normocytic normochromic: cbc w/ auto diff in the morning to trend H/H GI ppx: not currently indicated DVT ppx: Eliquis Code status: Full Prognosis: guarded Disposition: Inpatient ICU with telemetry Critical Care Time: 45min Time Spent With Patient Time: Total time spent is greater than 50% in coordination of care (as documented) at patient's floor/unit and/or counseling patient: Total time spent with greater than 50% in coordination of care (as documented) at patient's floor/unit and/or counseling patient:: 50 - 70 minutes Critical Care Time: Yes Total Critical Care Time: 45
[2022-04-29] MEDS: METOPROLOL TARTRATE 50 MG TABLET PO SCH ×2 (13:08→20:58)
[2022-04-29] MEDS: hydrOXYzine 25 MG TABLET PO PRN (17:11)
[2022-04-29] MEDS ORDERED: traZODone HCL 50 MG TABLET PO PRN (19:23)
[2022-04-30] MEDS: 0.9 % SODIUM CHLORIDE 10 ML SYRINGE IV SCH (05:15)
[2022-04-30 06:21] LABS: Basophils # (Auto) 0.06 K/mcL (0.00-0.30); Eosinophils # (Auto) 0.18 K/mcL (0.00-0.70); Eosinophils % (Auto) 2.9 % (0.0-7.0); Hematocrit 39.1 % (40.1-51.0); Hemoglobin 12.4 g/dL (13.7-17.5); Lymphocytes % (Auto) 11.1 % (15.5-49.0); Mean Cell Volume 96.3 fL (80.0-100.0); Mean Corpuscular HGB Conc 31.7 g/dL (31.0-36.0); Monocytes # (Auto) 0.85 K/mcL (0.10-0.90); Monocytes % (Auto) 13.5 % (1.0-12.0); Neutrophils % (Auto) 70.9 % (38.0-78.0); Platelet Count 181 K/mcL (140-440); RBC 4.06 M/mcL (4.63-6.08); WBC 6.3 K/mcL (4.5-11.0)
[2022-04-30 06:46] LABS: ALT/SGPT 15 U/L (<40); AST/SGOT 19 U/L (<40); Albumin 3.6 gm/dL (3.2-5.2); Albumin/Globulin Ratio 1.4 (1.0-2.3); Alkaline Phosphatase 103 U/L (39-117); Blood Urea Nitrogen 9 mg/dL (8-23); Calcium 8.8 mg/dL (8.6-10.4); Carbon Dioxide 23 mmol/L (22-30); Chloride 102 mmol/L (96-108); Globulin 2.5 gm/dL (2.2-3.7); Glomerular Filtration Rate 59; Glucose 105 mg/dL (70-105)
[2022-04-30] MEDS: DOCUSATE SODIUM 100 MG CAPSULE PO SCH (08:09)
[2022-04-30] MEDS: METOPROLOL TARTRATE 50 MG TABLET PO SCH (08:09)
[2022-04-30] MEDS: SENNOSIDES 1 TABLET PO SCH (08:09)
[2022-04-30] MEDS: ASPIRIN 81 MG TAB.CHEW PO SCH (08:09)
[2022-04-30] MEDS: APIXABAN 5 MG TABLET PO SCH (08:09)
[2022-04-30] MEDS: hydrOXYzine 25 MG TABLET PO PRN (08:13)
[2022-04-30] MEDS ORDERED: DILTIAZEM 120 MG CAP.XL.24H PO SCH (09:00)
--- NOTE | 2022-04-30 10:13 | Discharge Summary ---
Discharge Provider Provider IMPORTANT FOLLOW-UP INFORMATION FOR PCP: Patient information: Note initiated : 04/30/22 at 10:10 am Service Date, if different from initiated Date: [] Patient: Jalil Garcia 71 y/o M admitted on 04/26/22 for SOB . Chief Complaint: [] Date of admission: 04/26/22 14:47 Discharge date: 04/30/22 Primary care physician: GILBERTO Trujillo Attending physician on admission: Keny Huertas Consults: 04/26/22 12:32 Consult to Physician [CONS] Stat Comment: Consulting Provider: Keny Huertas Reason For Exam: Physician to Consult Attending physician on discharge: Keny Huertas COURSE Hospital Course Hospital course: History of present illness: Mr. Garcia is a 71 year old M history of atrial fibrillation's, essential hypertensions, asthma, presenting with 2 months history of gradual onset, gradually worsening shortness of breath. There was no prior similar symptoms. Patient is complaining of 2 months history of progressively worsening shortness of breath with deep Sitavig sessions of 100 feet. He denies any cough, sputum production, or respiratory wheezings. He denies any chest pain or palpitat ions. He denies any lightheadedness or dizziness. He denies any fever chills or diaphoresis. He denies any recent changes of his medication and he is taking metoprolol extended release 200 mg PO daily and Eliquis for his atrial fibrillation's. Vital signs at ED presentation significant for tachycardia and tachypnea with heart rate and rate of breathing in the 140s and mid 20s, respectively. COVID-negative. Troponin not elevated. BNP 4019. Chest x-ray showing prominent lung markings in both lower lobes it could be due to persistent inflammation or underlying fibrosis. Resolving pleural effusions. Status post diltiazem 20 mg IV push x2 with latest heart rate in the 70s in atrial fibrillation's and blood pressure 110s/80s mmHg. 04/27: Afebrile overnight. Patient is currently on room air. Heart rate still up in the 120s beats per minutes despite Cardizem 30 mg p.o. 4 times daily. D-dimer elevated. COVID-negative. Patient is complaining of brisk episode of anxiety. Denies chest pain or palpitations. Greatly improved degree of shortness of breath. CT angiogram of the chest to rule out pulmonary embolism. Increased Cardizem from 30 to 60 mg p.o. 4 times daily. Also starting Cardizem drip. Continue Eliquis for anticoagulations. 04/28: Cardizem drip has been off since 8 AM this morning. Patient's heart rate is between 80s to 100s beats per minutes. Patient's feel like his degree of shortness of breath has greatly improved. He also denies any chest pain or palpitations. He denies any anxiety. Switched Cardizem from 60 mg p.o. 4 times daily to Cardizem extended release 240 mg p.o. daily starting this morning. We will keep the Cardizem drip available if needed later today for heart rate control. Continue Eliquis as anticoagulations. If the patient's heart rate has been adequately controlled with the switch of the Cardizem to extended release, will discharge patient home tomorrow. 04/29: Cardizem drip was switched off at around 830 this morning. Patient is on Cardizem extended release 360 mg p.o. daily. However, patient's heart rate is still fairly elevated 130s at rest and 150s when he ambulates. Patient's denies any chest pain or palpitations. He also denies any anxiety. He denies any short of breath. He is asymptomatic. Will continue Cardizem extended release 360 mg p.o. daily and will add metoprolol tartrate 100 mg p.o. twice daily starting now. We will continue Eliquis as anticoagulations. 04/30: Reached clinical stability. Discharged to home with Rx sent to pharmacy. Follow up appointment with PCP made for him. Pending cardiology appointment as well. All questions were answered prior to patient being physically discharged. Discharge diagnosis: Atrial fibrillation with RVR Time Spent with Patient Time attestation: Total time spent providing and/or coordinating discharge services: Time spent: Less than 30 minutes EXAM Constitutional Vitals: Temp Pulse Resp BP Pulse Ox 36.8 C 104 H 20 107/77 96 04/30/22 08:01 04/29/22 10:08 04/30/22 09:01 04/30/22 10:01 04/30/22 10:01 General appearance: cooperative and no acute distress Head Head exam: Present atraumatic and normocephalic Eye Eye exam: Present EOMI and PERRL ENT ENT exam: Present mucous membranes moist, normal exam and normal external ear exam Neck Neck exam: Present normal inspection; Absent lymphadenopathy, tenderness or thyromegaly Respiratory Respiratory exam: Absent accessory muscle use, respiratory distress or wheezes Cardiovascular Cardiovascular exam: Present irregular rhythm; Absent JVD GI/Abdominal GI/Abdominal exam: Present normal bowel sounds and soft; Absent organomegaly or tenderness Rectal Rectal exam: Present deferred Extremities Exam Extremities exam: Present full ROM, normal capillary refill and normal inspection; Absent tenderness Neurological Exam Neurological exam: Present alert, CN II-XII intact and oriented X3; Absent motor sensory deficit Psychiatric Psychiatric exam: Present normal affect and normal mood; Absent anxious or depressed Skin Skin exam: Present dry and intact Discharge Data Data Completed and Pending Labs on day of discharge: Labs from last 24 hours 04/30/22 04/30/22 05:18 05:18 WBC 6.3 RBC 4.06 L Hgb 12.4 L Hct 39.1 L MCV 96.3 MCH 30.5 MCHC 31.7 RDW 14.0 Plt Count 181 MPV 10.0 Immature Gran % (Auto) 0.6 H Neut % (Auto) 70.9 Lymph % (Auto) 11.1 L [place] % (Auto) 13.5 H Eos % (Auto) 2.9 Baso % (Auto) 1.0 Lymph # (Auto) 0.70 L [place] # (Auto) 0.85 Eos # (Auto) 0.18 Baso # (Auto) 0.06 Immature Gran # 0.04 Absolute Neutrophils 4.50 Sodium 135 Potassium 4.5 Chloride 102 Carbon Dioxide 23 Anion Gap 10.0 BUN 9 Creatinine 1.2 GFR Calculation 59 Glucose 105 Calcium 8.8 Phosphorus 3.0 Magnesium 1.9 Total Bilirubin 1.0 AST 19 ALT 15 Alkaline Phosphatase 103 Total Protein 6.1 Albumin 3.6 Globulin 2.5 Albumin/Globulin Ratio 1.4 Preliminary micro results at discharge 04/26/22 08:57 Blood Culture - Preliminary Blood 04/26/22 08:51 Blood Culture - Preliminary Blood Discharge Plan Patient/Caregiver Discharge Instructions Activity: increase activity as tolerated Diet: Regular Diet Instructions: Metoprolol (By mouth), Diltiazem (By mouth), Apixaban (By mouth), A-fib (Atrial Fibrillation) (GEN) Activity Restrictions/Additional Instructions: Follow up with [facility] (Dr. Barrientos) as arranged by your primary care physician. Prescriptions: New metoprolol tartrate 50 mg Tablet 100 mg PO BID 60 Days Qty: 240 0RF diltiazem HCl 120 mg Capsule,Extended Release 24hr 360 mg PO DAILY 30 Days 0RF Continued triamcinolone acetonide 0.05 % ointment 1 applic TOPICAL BID Qty: 90 1RF albuterol sulfate [ProAir HFA] 90 mcg/actuation HFA aerosol inhaler 2 puff inhalation QID PRN (Reason: shortness of breath or wheezing) Qty: 2 1RF aspirin 81 mg tablet,delayed release (DR/EC) 81 mg PO QDAY 0RF hydroxyzine HCl 50 mg tablet 50 mg PO TID PRN (Reason: anxiety) Qty: 60 0RF Eliquis 5 mg tablet 5 mg PO BID Qty: 60 2RF Discontinued metoprolol succinate 200 mg tablet extended release 24 hr 200 mg PO QDAY Qty: 90 3RF Follow Up Plan Follow up with: Sandip Barrientos MD [Physician] - (Continue with your current appointment) Radha Ruiz ARNP [Primary Care Provider] - 05/12/22 8:15 am Patient Disposition: Home, Self-Care Rehab Potential: Good I certify that the patient requires SNF services: No Overall status at discharge: patient is back to baseline Discharge Orders: Discharge Order (Routine); Ordered 04/30/22 Ordered By: Keny Huertas
== END 2022-04-30 11:10 | disposition home or self-care (01) | DRG 310 ==
LOC: ED 08:11 → ICU 14:47
PROVIDERS: ADMIT Internal Medicine; ATTEND Internal Medicine